=== PATIENT | female | born 1965 | race African-American/Black ===

== ENCOUNTER 2020-10-10 12:49 | Inpatient (IN) | payer OTHER ==
[2020-10-10] MEDS ORDERED: SODIUM CHLORIDE 1,000 ML IV STA (13:08)
[2020-10-10 13:37] LABS: BASO % 1.2 % (0-2.0); EOS % 0.1 % (0-4.5); HEMATOCRIT 52.1 % (32.4-45.2); HEMOGLOBIN 16.4 GM/dL (10.7-15.3); LYMPH % 13.6 % (8-40); MCH 28.5 pg (25.7-33.7); MCHC 31.4 g/dl (32.0-36.0); MEAN CELL VOLUME 90.6 fl (80-96); MEAN PLT VOLUME 11.3 fl (7.5-11.1); MONO % 3.2 % (3.8-10.2); NEUT % 81.9 % (42.8-82.8); PLATELET COUNT 420 K/MM3 (134-434); RBC 5.76 M/mm3 (3.60-5.2); RDW 14.6 % (11.6-15.6); WHITE BLOOD COUNT 10.5 K/mm3 (4.0-10.0)
[2020-10-10 13:42] LABS: POTASSIUM 5.2 mmol/L (3.5-5.1)
[2020-10-10 13:44] LABS: CALCIUM 10.9 mg/dL (8.5-10.1)
[2020-10-10 13:45] LABS: ALBUMIN 4.4 g/dl (3.4-5.0); BLOOD UREA NITROGEN 36.5 mg/dL (7-18); INR 1.02 (0.83-1.09); PROTHROMBIN TIME (PATIENT) 12.3 SEC (9.7-13.0)
[2020-10-10 13:48] LABS: CREATININE 1.8 mg/dL (0.55-1.3)
[2020-10-10 13:49] LABS: BILIRUBIN,TOTAL 0.7 mg/dL (0.2-1); TOT PROT 9.1 g/dl (6.4-8.2)
[2020-10-10 13:53] LABS: N-TERMINAL BNP 65.4 pg/ml (5-125)
[2020-10-10] MEDS ORDERED: LACTATED RINGERS SOLUTION 1,000 ML IV STA (14:02)
[2020-10-10] MEDS ORDERED: INSULIN REGULAR HUMAN 100 UNITS/ML *VIAL IVPUSH ONE ×2 (14:03→14:05)
[2020-10-10 14:51] LABS: URINE APPEARANCE CLEAR; URINE BILIRUBIN NEGATIVE (NEGATIVE); URINE COLOR YELLOW; URINE GLUCOSE (UA) 3+ (NEGATIVE); URINE KETONE 1+ (NEGATIVE); URINE LEUK ESTERASE NEGATIVE (NEGATIVE); URINE NITRITE NEGATIVE (NEGATIVE); URINE PROTEIN TRACE (NEGATIVE); URINE UROBILINOGEN 0.2 mg/dL (0.2-1.0)
[2020-10-10] MEDS ORDERED: INSULIN REGULAR 100 UNITS in SODIUM CHLORIDE 99 ML IVPB SCH (16:15)
[2020-10-10 16:45] LABS: POTASSIUM 3.5 mmol/L (3.5-5.1)
[2020-10-10 16:47] LABS: CALCIUM 9.8 mg/dL (8.5-10.1)
[2020-10-10 16:48] LABS: MAGNESIUM 3.1 mg/dL (1.8-2.4)
[2020-10-10 16:51] LABS: CREATININE 1.6 mg/dL (0.55-1.3)
[2020-10-10] MEDS ORDERED: LACTATED RINGERS IV ONE (16:55)
[2020-10-10] MEDS ORDERED: POTASSIUM CHLORIDE IV ONE (16:55)
[2020-10-10 18:05] LABS: VENOUS BASE EXCESS -0.5 mmol/L (-2-2); VENOUS O2 SATURATION 71.1 % (70-80); VENOUS PCO2 48.9 mmHg (38-52); VENOUS PH 7.342 (7.310-7.410)
[2020-10-10 18:27] LABS: POTASSIUM 4.4 mmol/L (3.5-5.1)
[2020-10-10 18:29] LABS: BLOOD UREA NITROGEN 25.6 mg/dL (7-18)
[2020-10-10 18:32] LABS: CREATININE 1.3 mg/dL (0.55-1.3)
[2020-10-10] MEDS ORDERED: SODIUM CHLORIDE 0.45% 1,000 ML IV SCH (21:00)
[2020-10-10] MEDS ORDERED: FLUCONAZOLE 150 MG TABLET PO ONE (21:42)
[2020-10-10 21:55] LABS: HEMATOCRIT 46.7 % (32.4-45.2); HEMOGLOBIN 15.4 GM/dL (10.7-15.3); MCH 28.6 pg (25.7-33.7); MEAN CELL VOLUME 86.8 fl (80-96); MEAN PLT VOLUME 10.9 fl (7.5-11.1); PLATELET COUNT 364 K/MM3 (134-434); RBC 5.38 M/mm3 (3.60-5.2); WHITE BLOOD COUNT 12.3 K/mm3 (4.0-10.0)
[2020-10-10] MEDS ORDERED: INSULIN (LEVEMIR) 100 UNITS/ML UNITS SQ SCH (22:00)
[2020-10-10 22:09] LABS: POTASSIUM 4.6 mmol/L (3.5-5.1)
[2020-10-10 22:11] LABS: CALCIUM 10.1 mg/dL (8.5-10.1)
[2020-10-10 22:12] LABS: BLOOD UREA NITROGEN 23.3 mg/dL (7-18)
[2020-10-10 22:15] LABS: CREATININE 1.3 mg/dL (0.55-1.3)
[2020-10-10] MEDS ORDERED: INSULIN (NOVOLOG) ASPART 100 UNITS/ML 10ML VIAL ONE (22:42)
[2020-10-10] MEDS: INSULIN SLIDING SCALE (NOVOLOG) 1 VIAL SQ SCH (22:51)
[2020-10-10] MEDS: HEPARIN NA (PORCINE) 5,000 UNITS/ML 1ML VIAL SQ SCH (22:54)
[2020-10-10] MEDS: NYSTATIN 500,000 UNITS/5 ML SUSPENSION PO SCH (23:40)
[2020-10-10 23:58] VITALS: BMI 22.3
[2020-10-11] MEDS: INSULIN SLIDING SCALE (NOVOLOG) 1 VIAL SQ SCH ×4 (02:20→16:26)
[2020-10-11 04:31] LABS: POTASSIUM 3.6 mmol/L (3.5-5.1)
[2020-10-11 04:32] LABS: CALCIUM 9.2 mg/dL (8.5-10.1)
[2020-10-11 04:33] LABS: BLOOD UREA NITROGEN 18.2 mg/dL (7-18)
[2020-10-11] MEDS: NYSTATIN 500,000 UNITS/5 ML SUSPENSION PO SCH ×4 (05:33→23:03)
[2020-10-11] MEDS: HEPARIN NA (PORCINE) 5,000 UNITS/ML 1ML VIAL SQ SCH ×3 (05:33→22:31)
[2020-10-11] MEDS ORDERED: POTASSIUM CHLORIDE TABS 20 MEQ TABLET.ER (FP) PO ONE (05:49)
[2020-10-11 07:50] LABS: BASO % 1.3 % (0-2.0); EOS % 0.5 % (0-4.5); HEMATOCRIT 40.1 % (32.4-45.2); HEMOGLOBIN 13.1 GM/dL (10.7-15.3); LYMPH % 37.6 % (8-40); MCHC 32.6 g/dl (32.0-36.0); MEAN CELL VOLUME 85.8 fl (80-96); MEAN PLT VOLUME 10.4 fl (7.5-11.1); MONO % 6.5 % (3.8-10.2); NEUT % 54.1 % (42.8-82.8); PLATELET COUNT 294 K/MM3 (134-434); RBC 4.67 M/mm3 (3.60-5.2); RDW 14.2 % (11.6-15.6); WHITE BLOOD COUNT 10.1 K/mm3 (4.0-10.0)
[2020-10-11] MEDS ORDERED: INSULIN (LEVEMIR) 100 UNITS/ML UNITS SQ ONE (07:51)
[2020-10-11 08:26] LABS: POTASSIUM 3.8 mmol/L (3.5-5.1)
[2020-10-11 09:03] LABS: ALBUMIN 3.3 g/dl (3.4-5.0); BLOOD UREA NITROGEN 16.1 mg/dL (7-18); MAGNESIUM 2.5 mg/dL (1.8-2.4)
[2020-10-11 09:04] LABS: BLOOD UREA NITROGEN 16.2 mg/dL (7-18)
[2020-10-11 09:06] LABS: PHOSPHOROUS 2.5 mg/dL (2.5-4.9)
[2020-10-11 09:08] LABS: BILIRUBIN,TOTAL 0.5 mg/dL (0.2-1); CREATININE 0.9 mg/dL (0.55-1.3)
[2020-10-11 09:13] LABS: TOT PROT 6.7 g/dl (6.4-8.2)
[2020-10-11] MEDS: SODIUM CHLORIDE 0.45% 1,000 ML IV SCH (09:54)
[2020-10-11] MEDS ORDERED: INSULIN (LEVEMIR) 100 UNITS/ML UNITS SQ SCH (11:30)
[2020-10-12] MEDS: NYSTATIN 500,000 UNITS/5 ML SUSPENSION PO SCH ×3 (06:22→20:05)
[2020-10-12] MEDS: HEPARIN NA (PORCINE) 5,000 UNITS/ML 1ML VIAL SQ SCH ×2 (06:22→14:29)
[2020-10-12] MEDS: INSULIN SLIDING SCALE (NOVOLOG) 1 VIAL SQ SCH ×3 (06:24→17:12)
[2020-10-12] MEDS ORDERED: INSULIN (LEVEMIR) 100 UNITS/ML UNITS SQ SCH ×3 (07:00→22:00)
[2020-10-12] MEDS ORDERED: INSULIN (LEVEMIR) 100 UNITS/ML UNITS SQ ONE (07:41)
[2020-10-12 08:49] LABS: BASO % 1.1 % (0-2.0); EOS % 2.4 % (0-4.5); HEMOGLOBIN 12.6 GM/dL (10.7-15.3); LYMPH % 51.3 % (8-40); MCHC 32.3 g/dl (32.0-36.0); MEAN CELL VOLUME 86.5 fl (80-96); MONO % 4.6 % (3.8-10.2); NEUT % 40.6 % (42.8-82.8); PLATELET COUNT 225 K/MM3 (134-434); RBC 4.51 M/mm3 (3.60-5.2); RDW 13.8 % (11.6-15.6); WHITE BLOOD COUNT 6.3 K/mm3 (4.0-10.0)
[2020-10-12] MEDS: SODIUM CHLORIDE 0.45% 1,000 ML IV SCH (08:58)
[2020-10-12 09:03] LABS: POTASSIUM 3.4 mmol/L (3.5-5.1)
[2020-10-12 09:05] LABS: CALCIUM 8.6 mg/dL (8.5-10.1)
[2020-10-12 09:09] LABS: CREATININE 0.7 mg/dL (0.55-1.3)
[2020-10-12 09:11] LABS: BILIRUBIN,DIRECT 0.1 mg/dL (0.0-0.2); TOT PROT 6.3 g/dl (6.4-8.2)
[2020-10-12 09:12] LABS: BILIRUBIN,TOTAL 0.6 mg/dL (0.2-1)
[2020-10-12] MEDS ORDERED: POTASSIUM CHLORIDE TABS 20 MEQ TABLET.ER (FP) PO ONE (14:05)
[2020-10-12 18:52] VITALS: BP 131/58; PULSE 79; TEMP 98.5
[2020-10-12] MEDS ORDERED: ATORVASTATIN CA 20 MG TABLET (FP) PO SCH (22:00)
[2020-10-13] MEDS ORDERED: INSULIN (LEVEMIR) 100 UNITS/ML UNITS SQ SCH (07:00)
== END 2020-10-12 20:24 | disposition home or self-care (01) | DRG 638 ==
LOC: JER 12:49 → JERBED 15:01 → UNDOADMIN 15:01 → JERBED 17:10 → J5S 22:27
PROVIDERS: ADMIT Internal Medicine Pulmonary Disease; ATTEND Internal Medicine
DX: E11.10 Type 2 diabetes mellitus with ketoacidosis without coma (principal); E87.0 Hyperosmolality and hypernatremia; N17.9 Acute kidney failure, unspecified; R42 Dizziness and giddiness; D64.9 Anemia, unspecified; E11.65 Type 2 diabetes mellitus with hyperglycemia; E86.0 Dehydration; D57.3 Sickle-cell trait
CPT/HCPCS: 36415; 71045-TC-FY; 80048; 80053; 80061; 80076; 81003; 82010; 82803; 82962; 83036; 83721; 83735; 83880; 84100; 84439; 84443; 84484; 85025; 85027; 85610; 85730; 86850; 86900; 86901; 93005; 93010; 99291; C9803; J1644; U0003